=== PATIENT | female | born 1985 | race Caucasian/White ===

== ENCOUNTER 2023-09-01 19:36 | Emergency (ER) | payer MEDICAID ==
[2023-09-01 20:18] VITALS: BP 138/91; PULSE 79
[2023-09-01] MEDS ORDERED: Ketorolac 30 MG/ML SDV IM ONE (21:24)
== END 2023-09-01 22:01 | disposition home or self-care (01) ==
LOC: JP.ED 19:36
DX: T22.111A Burn of first degree of right forearm, initial encounter (principal); F17.210 Nicotine dependence, cigarettes, uncomplicated; Z88.5 Allergy status to narcotic agent; Z91.013 Allergy to seafood; Z86.16 Personal history of COVID-19
CPT/HCPCS: 96372; 99283; J1885